=== PATIENT | male | born 1950 | race Two or more races ===

== ENCOUNTER 2023-01-23 07:42 | Emergency (ER) | payer OTHER ==
[~2023-01-23] VITALS: Ht 165.1 cm; Wt 72.6 kg
--- NOTE | 2023-01-23 07:50 | NUR ---
RECEIVED PT 72 YRS MALE CAM FROM HOME by robert C/O DIZZINESS FOR 1 DAYS respiration spont and easy dinessiess any weekness or nubness SEEN BY DR. DE SANTIAGO ON TRIAGE AREA
[2023-01-23] MEDS ORDERED: IV NS 0.9% 1,000 ML BAG IV ONE (08:00)
[2023-01-23 08:39] LABS: BASOPHILS # (AUTO) 0.1 K/uL (0.0-0.2); BASOPHILS % (AUTO) 0.9 % (0.0-2.0); HEMATOCRIT 50 % (39-51); HEMOGLOBIN 16.9 g/dL (13.5-17.5); LYMPHOCYTES # (AUTO) 2.2 K/uL (0.8-4.8); LYMPHOCYTES % (AUTO) 23.6 % (20.0-44.0); MEAN CORPUSCULAR HGB CONC 34 g/dl (31.0-36.0); MEAN CORPUSCULAR VOLUME 92 fL (80-96); MONOCYTES # (AUTO) 0.9 K/uL (0.1-1.30); MONOCYTES % (AUTO) 9.5 % (2.0-12.0); PLATELET COUNT (AUTO) 316 K/uL (150-450); RED BLOOD CELL COUNT(AUTO) 5.41 MIL/uL (4.5-6.0); WHITE BLOOD COUNT (AUTO) 9.5 K/uL (4.3-11.0)
--- NOTE | 2023-01-23 08:41 | NUR ---
TO CT SCAN OF HEAD
[2023-01-23 08:52] LABS: CALCIUM, SERUM 9.4 mg/dL (8.5-10.1); CARBON DIOXIDE 32 mmol/L (21-32); CHLORIDE 101 mmol/L (98-107); CREATININE 1.8 mg/dL (0.6-1.3); GLUCOSE 136 mg/dL (74-106); SODIUM SERUM 140 mmol/L (136-145); UREA NITROGEN, BLOOD 29 mg/dL (7-18)
[2023-01-23 08:54] LABS: POTASSIUM 2.8 mmol/L (3.5-5.1)
[2023-01-23 08:58] LABS: ALANINE AMINOTRANSFERASE 64 U/L (12-78); ALBUMIN 3.7 g/dL (3.4-5.0); ALKALINE PHOSPHATASE 103 U/L (46-116); ASPARTATE AMINOTRANSFERASE 35 U/L (15-37); BILIRUBIN,DIRECT 0.2 mg/dL (0.0-0.2); BILIRUBIN,TOTAL 0.5 mg/dL (0.2-1.0); TOTAL PROTEIN, SERUM 7.7 g/dL (6.4-8.2)
[2023-01-23] MEDS ORDERED: POTASSIUM CHLORIDE 20 MEQ TAB.PRT.SR PO ONE ×2 (09:30→10:11)
[2023-01-23 11:14] VITALS: BP 128/81
--- NOTE | 2023-01-23 11:14 | NUR ---
IV removed. Catheter intact and site benign. Pressure and 4x4 applied to site. No bleeding noted.Patient discharged to home in stable condition. Written and verbal after care instructions given. Patient verbalizes understanding of instruction.
== END 2023-01-23 11:15 | disposition home or self-care (01) ==
LOC: ER 07:44
DX: R55 Syncope and collapse (principal); N28.9 Disorder of kidney and ureter, unspecified; E87.6 Hypokalemia; E86.0 Dehydration; I10 Essential (primary) hypertension; E78.5 Hyperlipidemia, unspecified; E11.9 Type 2 diabetes mellitus without complications
CPT/HCPCS: 99285; 96360; 70450; 71045; 93005; 85025; 80048; 80076; 36415; 84484; 85730; 82962; J7030

== ENCOUNTER 2024-02-29 16:57 | Emergency (ER) | payer OTHER ==
[~2024-02-29] VITALS: Ht 172.7 cm; Wt 75.3 kg
[2024-02-29 17:46] LABS: BASOPHILS # (AUTO) 0.1 K/uL (0.0-0.2); BASOPHILS % (AUTO) 0.7 % (0.0-2.0); EOSINOPHILS # (AUTO) 0.4 K/uL (0.0-0.7); EOSINOPHILS % (AUTO) 4.7 % (0.0-6.0); HEMATOCRIT 50 % (39-51); HEMOGLOBIN 16.9 g/dL (13.5-17.5); LYMPHOCYTES # (AUTO) 2.1 K/uL (0.8-4.8); LYMPHOCYTES % (AUTO) 23.1 % (20.0-44.0); MEAN CORPUSCULAR HEMOGLOBIN 31 PG (26.0-33.0); MEAN CORPUSCULAR HGB CONC 34 g/dl (31.0-36.0); MEAN CORPUSCULAR VOLUME 91 fL (80-96); MONOCYTES # (AUTO) 0.8 K/uL (0.1-1.30); MONOCYTES % (AUTO) 8.7 % (2.0-12.0); NEUTROPHILS # (AUTO) 5.6 K/uL (1.8-8.9); NEUTROPHILS % (AUTO) 62.8 % (43.0-81.0); PLATELET COUNT (AUTO) 306 K/uL (150-450); RED BLOOD CELL COUNT(AUTO) 5.44 MIL/uL (4.5-6.0); WHITE BLOOD COUNT (AUTO) 8.9 K/uL (4.3-11.0)
[2024-02-29 17:57] LABS: CALCIUM, SERUM 8.3 mg/dL (8.5-10.1); CARBON DIOXIDE 27 mmol/L (21-32); CHLORIDE 106 mmol/L (98-107); CREATININE 1.4 mg/dL (0.6-1.3); GLUCOSE 151 mg/dL (74-106); POTASSIUM 3.2 mmol/L (3.5-5.1); SODIUM SERUM 141 mmol/L (136-145); UREA NITROGEN, BLOOD 14 mg/dL (7-18)
[2024-02-29] MEDS: POTASSIUM CHLORIDE 20 MEQ TAB.PRT.SR PO ONE (18:41)
[2024-02-29 21:24] VITALS: BP 134/82; TEMP 98; O2SAT 98
== END 2024-02-29 21:25 | disposition home or self-care (01) ==
LOC: ER 17:02
DX: R42 Dizziness and giddiness (principal); E87.6 Hypokalemia; I10 Essential (primary) hypertension; E78.5 Hyperlipidemia, unspecified; Z60.2 Problems related to living alone
CPT/HCPCS: 36415; 71045-TC; 80048-TC; 84484-TC; 85025-TC